=== PATIENT | male | born 1985 | race Caucasian/White ===

== ENCOUNTER 2017-11-30 11:19 | Emergency (ER) | payer SELFPAY ==
[~2017-11-30] VITALS: Ht 180.3 cm; Wt 146.8 kg
[~2017-11-30 11:19] MED LIST: INDOCIN50 MG PO; METHADONE10 MG PO; PEN-VEE K,VEET500 MG PO; PREDNISONE20 MG PO; ZITHROMAX Z-PA250 MG PO
[2017-11-30 12:02] LABS: HEMATOCRIT 49.2 % (38.0-50.0); MCH 30.8 PG (29.0-34.0); MCHC 34.6 G/DL (30.0-36.0); MCV 89.1 FL (86-99); PLATELET COUNT 225 K/uL (156-360); RBC DIS.WIDTH-CV 12.6 % (11.8-14.6); RBC DIS.WIDTH-SD 41.4 % (39-53); RED BLOOD COUNT 5.52 M/uL (4.00-5.50); WHITE BLOOD COUNT 11.4 K/uL (4.1-10.2)
[2017-11-30 12:10] LABS: ALBUMIN 4.7 g/dL (3.2-4.8); CHLORIDE 105 mEq/L (99-109); POTASSIUM 4.2 mEq/L (3.7-5.4); SODIUM 138 mEq/L (136-147)
[2017-11-30 12:12] LABS: GLUCOSE 114 mg/dL (70-99); TOTAL PROTEIN 8.2 g/dL (6.4-8.3)
[2017-11-30 12:14] LABS: TOTAL BILIRUBIN 0.6 mg/dL (0.0-1.0)
[2017-11-30 12:16] LABS: ALKALINE PHOSPHATASE 108 IU/L (3-129); CREATININE 1.2 mg/dL (0.6-1.3); GFR ESTIMATE (CALCULATED) > 59 mL/min/ (58.99-99999)
[2017-11-30 12:17] LABS: UREA NITROGEN (BUN) 13 mg/dL (9-23)
[2017-11-30 12:18] LABS: AST (GOT) 29 IU/L (2-34)
[2017-11-30 12:19] LABS: ALT (GPT) 60 IU/L (3-49)
[2017-11-30 12:38] LABS: APPEARANCE CLEAR ((CLEAR)); BILIRUBIN NEGATIVE; BLOOD NEGATIVE; COLOR YELLOW ((YELLOW)); GLUCOSE (STRIP) NEGATIVE; KETONES NEGATIVE; LEUKOCYTES NEGATIVE; NITRITE NEGATIVE; PROTEIN (STRIP) 30; SPECIFIC GRAVITY 1.023 (1.000-1.030); UCUL ADDED? NO; UROBILINOGEN 0.2 MG/DL (0.2-1.0)
[2017-11-30] MEDS ORDERED: NAPROSYN500 MG PO (16:17)
[2017-11-30] MEDS ORDERED: FLEXERIL10 MG PO (16:17)
[2017-11-30 16:30] VITALS: BP 160/91
== END 2017-11-30 16:32 | disposition home or self-care (01) ==
LOC: EME 11:19
DX: R10.30 Lower abdominal pain, unspecified (principal); N50.812 Left testicular pain; G93.3 Postviral and related fatigue syndromes; F17.200 Nicotine dependence, unspecified, uncomplicated; Z88.5 Allergy status to narcotic agent; Z88.6 Allergy status to analgesic agent
CPT/HCPCS: 76870; 80053; 81003; 85027; 99281; 99283; J1885